=== PATIENT | female | born 1990 | race Caucasian/White ===

== ENCOUNTER 2022-04-25 09:50 | Outpatient (CLI) | payer OTHER, SELFPAY ==
[2022-04-25 14:50] LABS: Chlamydia DNA Amplified* NOT DETECTED (No Detected); GC DNA Amplified* NOT DETECTED (No Detected)
== END 2022-04-25 09:51 | disposition home or self-care (01) ==
PROVIDERS: PCP Nurse Practitioner Family; Visit Provider Obstetrics & Gynecology
DX: N89.8 Other specified noninflammatory disorders of vagina (principal); N92.0 Excessive and frequent menstruation with regular cycle
CPT/HCPCS: 84443; 87491; 87591

== ENCOUNTER 2022-04-30 06:56 | Outpatient (CLI) | payer OTHER, SELFPAY ==
--- NOTE | 2022-04-30 07:15 | CRLHL7_ITS ---
For Patients: As a result of the Century Cures Act, medical imaging exams and procedure reports are released immediately into your electronic medical record. You may view this report before your referring provider. If you have questions, please contact your health care provider. INDICATION: COMPARISON: none TECHNIQUE: 2D zamora scale and color Doppler images were acquired of the pelvis using a transabdominal and transvaginal approach. FINDINGS: Sonographic images demonstrate a normal size and smooth outer contour of the uterus. Uterus measures 10.9 cm in length by 4.1 cm in AP diameter by 6.5 cm in transverse dimension. The myometrium has a normal uniform echotexture. The endometrial lining appears measures 15 mm in composite thickness. There are 2 hyperechoic foci associated with the endometrium measuring 5 x 10 x 10 millimeters and 9 x 4 x 5 millimeters. The right ovary measures 4.9 x 2.4 x 3.4 cm in size and the left ovary measures 4.5 x 2.4 x 2.5 cm. The ovaries demonstrate normal arterial and venous blood flow on color Doppler analysis. There are no suspicious fluid collections within the cul-de-sac. IMPRESSION: Endometrial thickness 15 millimeters. Possible endometrial polyps measuring 1 cm and 0.9 cm. Dictated by Michael Garay MD @ 04/30/2022 12:51:57 PM (Electronically Signed)
== END 2022-04-30 06:57 | disposition home or self-care (01) ==
LOC: US 06:57
PROVIDERS: PCP Obstetrics & Gynecology; Visit Provider Obstetrics & Gynecology
DX: N92.0 Excessive and frequent menstruation with regular cycle (principal); R93.89 Abnormal findings on diagnostic imaging of other specified body structures
CPT/HCPCS: 76830; 76856